=== PATIENT | male | born 1950 | race Caucasian/White ===

== ENCOUNTER → 2019-12-22 15:25 | Outpatient (CLI) | payer MEDICARE, OTHER, SELFPAY ==
[2019-12-23 02:10] LABS: COVID19 Sendout Not Detected (Not Detect)
== END ==
PROVIDERS: PCP Family Medicine Sports Medicine; Visit Provider Registered Nurse
DX: Z01.812 Encounter for preprocedural laboratory examination (principal)
CPT/HCPCS: 87635

== ENCOUNTER 2019-12-26 06:53 | Inpatient (IN) | payer MEDICARE, OTHER, SELFPAY ==
[2019-12-22 10:28] VITALS: BMI 32.1
[2019-12-26] VITALS (18 sets, daily range): BP systolic 106–136; BP diastolic 58–74; PULSE 60–68; RESP 10–18; TEMP 36.1–37.4; O2SAT 92–100; BMI 31.4
--- NOTE | 2019-12-26 | PATH_ITS ---
[facility] Accession Number: [id number] . 01 Material submitted: . PART A: lymph node - RIGHT PELVIC NODES PART B: lymph node - LEFT ILIAC NODE PART C: lymph node - LEFT PELVIC NODES PART D: prostate - PROSTATE . 02 Diagnosis: A. Right Pelvic Lymph Nodes, Excision: One lymph node negative for carcinoma. . B. Left Iliac Lymph Node, Excision: One lymph node negative for carcinoma. . C. Left Pelvic Lymph Nodes, Excision: One lymph node negative for carcinoma. . D. Prostate, Radial Prostectomy: Acinar adenocarcinoma; see Cancer Case Summary. . CANCER CASE SUMMARY - Prostate Gland Procedure: Radial prostatectomy. Prostate size Weight: 55 grams. Size: 4.7 x 4.5 x 4.0 cm. Histologic type: Acinar adenocarcinoma. Histologic grade: Grade group 2 (Elizabeth score 3+4=7). Percentage of pattern 4 in Purdin score 7 cancer: Approximately 20%. Tertiary pattern 5 (less than 5%) in overall Purdin score 7: Not applicable. Intraductal carcinoma: Not identified. Tumor quantitation Estimated percentage of prostate involved by tumor: 5%. Tumor size (dominant nodule): Greatest linear extent 18 mm (spanning blocks D12 and D14. Extraprostatic extension: Not identified. Urinary bladder neck invasion: Not identified. Seminal vesicle invasion: Not identified. Lymphovascular invasion: Not identified. Perineural invasion: Not identified. Margins: Uninvolved by invasive carcinoma. Treat effect: No known presurgical therapy. Regional lymph nodes Number of lymph nodes involved: 0. Number of lymph nodes examined: 3. Pathologic stage classification (pTNM, AJCC 8th edition) Primary tumor: pT2. Regional lymph nodes: pN0. . [facility] 12/29/2019 1750 Local . 02 Electronically signed: . Goran Pettit MD, PhD, Pathologist NPI- [id number] . 01 Gross description: . (A) Received in formalin, labeled right pelvic nodes, is a lymph node (5.4 x 2.0 x 0.9 cm) with attached adipose tissue. Serially sectioned and entirely submitted in cassettes A1-A8. (B) Received in formalin, labeled left iliac node, is a lymph node (1.4 x 1.0 x 0.4 cm). Serially sectioned and entirely submitted in cassette B1. (C) Received in formalin, labeled left pelvic nodes, is an apparent cluster of lymph nodes with surrounding adipose tissue (4.5 x 2.5 x 0.9 cm). Serially sectioned and entirely submitted in cassettes C1-C5. (D) Received in formalin, labeled prostate, is a prostate gland (55 grams, 4.0 cm AP, 4.7 cm ML, 4.5 cm SI), with attached seminal vesicles (right - 3.2 x 2.0 x 0.7 cm; left - 3.0 x 1.5 x 0.5 cm), and vas deferentia (right: length-4.0 cm, diameter-0.3 cm; left: length-0.8 cm, diameter-0.4 cm). The parenchyma is villegas-white with focally dark brown soft areas and a nodular appearance. No definitive nodules, masses or lesions are identified. Ink code: purple-right anterior; orange-left anterior; green-right posterior; black-left posterior; yellow-resection margin. The prostate is serially sectioned superior to inferior into nine slices, not including the base and apex resection margins. Section code: (D1) right vas deferens, resection margin en face and shipping services sales representative serial sections; (D2) left vas deferens, resection margin en face and shipping services sales representative serial sections; (D3-D4, D5-D6) seminal vesicles and base junction, shipping services sales representative serial sections, bisected and submitted right to left and superior to inferior; (D7) base resection margin, perpendicularly sectioned, entirely submitted; (D8-D11) slice 2, further bisected, one slice, quartered, entirely submitted; (D12-D15) slice 4, quartered, entirely submitted; (D16-D19) slice 6, quartered, entirely submitted; (D20-D22) slice 8, trisected, entirely submitted; (D23) apex, perpendicularly sectioned, entirely submitted. ([id number]) /[facility] 12/27/2019 1455 Local . 02 Pathologist provided ICD-10: C61 . 02 CPT . 498576, [id number], [id number], [id number] Performed at: 01 [facility] [address] [id number] MD Gary Arguello MD Phone: [phone] Performed at: [facility] [address] [place], [place] [id number] MD Carina Potter MD Phone: [phone]
[2019-12-26] MEDS: LACTATED RINGERS 1,000 ML 42 ML IV ×2 (07:53→10:02)
--- NOTE | 2019-12-26 07:58 | PM.PREOP ---
Pre-operative Note Interval Note History & Physical reviewed/Exam performed by Physician: Yes Changes to H&P: No H&P completed within 30 days and has changed as indicated here:: There are no changes to the history and physical examination scanned on file.
[2019-12-26] MEDS: CEFAZOLIN 1 GM/50 ML FROZ.PIGGY IV (08:35)
[2019-12-26] MEDS: CEFAZOLIN 2 GM/100 ML FROZ.PIGGY IV (08:35)
--- NOTE | 2019-12-26 09:25 | SUR.OPER ---
Supine on padded OR bed, head on pillow, arms secured on padded arm boards at <90 degrees abduction, legs uncrossed, safety belt across lower legs, pillow under knees, gel pad to heels.
[2019-12-26] MEDS: BUPIVACAINE LIPOSOME 266 MG/20 ML VIAL INJ (09:55)
--- NOTE | 2019-12-26 11:09 | SUR.OPER ---
Ligasure bipolar unit used S/N:[id number]
--- NOTE | 2019-12-26 12:23 | PM.OP.1 ---
Operative Date/Time/Diagnoses Date of procedure: 12/26/19 Time of procedure: 12:24 Pre-op diagnosis: Adenocarcinoma of the prostate Post-op diagnosis: same Procedure & Clinicians Procedure: 1.Radical retropubic prostatectomy. Same procedure as scheduled: Yes Indications: 1. Adenocarcinoma of the prostate. Surgeon: Yara Loyola Cutting Machine Operator: Josefina Mary Click Yes if Unassisted: No Anesthesia Type: General, Spinal and Local Operative Notes Findings: 1. Tissue planes overall unremarkable and anatomic. 2. A 1 cm, what appeared to be a lymph node, was excised from the pelvic adipose tissue near the left common iliac vasculature. 3. The prostate was moderately enlarged with a moderate-sized intravesical median lobe. Closure Type: primary Specimen(s): other Applied: catheter (18 Brazilian silicone Omer catheter) and drain(s) (Fifteen Brazilian fenestrated pelvic drain) Estimated Blood Loss (mL): 500 Blood products transfused: none Tourniquet time (min): 0 Procedure in detail: The patient was administered a successful Duramorph spinal anesthetic. He was then positioned in supine is was administered general anesthesia. The abdomen genitalia and groin were then prepped and draped in sterile fashion a 22 Brazilian Omer catheter was inserted in the bladder and the balloon filled to 20 cc and placed to gravity drainage. A midline infraumbilical incision was then made above the pubic symphysis division of the subcutaneous fat and midline rectus fascia were undertaken using combination of cautery and blunt and sharp technique the pelvic retroperitoneum was then entered. The pelvic sidewalls and space of Retzius were then exposed using blunt technique. The left external iliac vein adventitia was then divided along its length and the obturator josefina packet was then dissected from its fossa great care was taken to identify and avoid injury to the arterial supply or the obturator nerve. The sample was labeled appropriately and submitted to pathology for routine gross and microscopic examination. The exact same steps and maneuvers were conducted on the left side. The dorsal venous complex was then identified isolated and ligated with a 0 Vicryl suture hemostasis was satisfactory. The endopelvic fascia was then divided on either side of the prostate. The urethra just beyond the prostate apex was then carefully isolated identified and was divided the previously placed Omer catheter was then repositioned Pretty a low superior and anterior reflection of the prostate. The the non VA is fascia was then carefully opened and a plane was developed between it and the anterior rectal wall. The lateral and posteriorly positioned vascular bundles were then carefully isolated of and divided using the LigaSure Impact device. Now with the prostate reflected anteriorly and superiorly the seminal vesicles and vasa were identified bilaterally each were meticulously dissected from their position with application of small hemo lock clips were necessary for hemostasis large hemoclip lock clips were placed across the vasa on the patient and specimen side before division. Next the prostate was from the bladder neck using blunt and cautery technique the prostate with attached seminal vesicles was then handed off and submitted to pathology for routine gross and microscopic examination. The bladder neck was then reconstructed by 1st the facing the mucosa to the outer edges using a Lembert technique. A tennis racquet narrowing of the bladder neck aperture was then performed using 0 Monocryl suture The Araseli sound was then positioned in the penile membranous urethra and the flanges engaged. 2 - 0 Monocryl suture were then placed from outside in on the membranous urethra at the 2 468 in 10:00 a.m. positions. The same suture were then brought through the neobladder neck at the corresponding locations from inside to out. The [place] sound was then removed and an 18 Brazilian silicone Omer catheter was then inserted under direct visualization its tip was then advanced into the bladder lumen through the neobladder neck the balloon was then inflated to 15 cc. The anastomotic sutures were then diet tied down individually to complete the vesicle urethral anastomosis. The bladder was irrigated and found to be free of blood and clot. The catheter was placed to gravity drainage. Next a 15 Brazilian round fenestrated drain was positioned in the space of Retzius and right and left pelvic gutters and brought out through a separate stab incision to the right of the midline incision. This was secured in place using a 2 0 silk suture. The midline fascia was then closed using a running 0 PDS. Exparel anesthetic was administered to the rectus fascia layer and skin. The subcutaneous layer was closed with running 2 0 Vicryl. The skin was reapproximated utilizing a subcuticular technique of 4 0 Monocryl. The drain site and incision were then dressed with the Telfa and overlying op site for bio occlusive closure. The patient was then awakened and transferred to a gurney. He was then transported to recovery in stable condition. Complications: none Post-operative Condition: stable Disposition: PACU Plan for aftercare: Admit to acute care
--- NOTE | 2019-12-26 12:57 | PM.HP.1 ---
History of Present Illness History of Present Illness Chief complaint: [id number] PROSTATECTOMY Patient History Medical History Eczema (Acute) Hemorrhoids (Acute) HLD (hyperlipidemia) (Acute) HTN (hypertension) (Acute) Impaired hearing (Acute) LAFB (left anterior fascicular block) (Acute) Left knee pain (Acute) Mobitz II (Acute) KWADWO on CPAP (Acute) Pacemaker (Acute 04/2013) Pre-diabetes (Acute) Prostate cancer (Acute 11/2019) RBBB (right bundle branch block) (Acute) Seasonal allergies (Acute) Tingling of both feet (Acute) Surgical History History of esophagogastroduodenoscopy (EGD) (Acute) Hx of bilateral cataract extraction (Acute) Hx of cardiac cath (Acute 10/2010) Hx of colonoscopy (Acute) Hx of coronary angioplasty (Acute 11/25/17) Hx of heart artery stent (Acute) Hx of hernia repair (Acute 1988) S/P CABG x 3 (Acute 11/27/17) Family & Social History Social History: household members spouse Prior Living Arrangements RV Safety & Behavioral: Feels Safe in Current Yes Environment Been Physically Hurt or No Threatened By a Person Suicidal Ideation Description None Suicide Plan Description No Plan Tobacco & Substance use: Smoking Status Never smoker alcohol intake current alcohol intake frequency holiday/special occasion Substance Use Type does not use Meds Home Medications and Allergies Home Medications Medication Instructions Recorded Confirmed Type aspirin 81 mg PO BID 12/22/19 12/26/19 History lisinopril 10 mg PO BID 12/22/19 12/26/19 History Allergies Allergy/AdvReac Type Severity Reaction Status Date / Time niacin AdvReac Severe Flushing Verified 12/26/19 07:49 Zshrhru-Rjh-Sbz Reductase AdvReac Severe My body Verified 12/26/19 07:49 Inhibitor feels like it gets runover by a steam roller Review of Systems Review of Systems ROS: Yes All systems reviewed with the patient and are negative except as otherwise documented Exam Vital Signs (past 8 hours): - 12/26/19 12:29 12/26/19 12:34 12/26/19 12:39 Temperature 97.9 F Pulse Rate 62 65 66 Respiratory Rate 17 12 15 Blood Pressure 123/66 106/61 124/69 Pulse Oximetry 92 97 98 Oxygen Delivery Method Nasal Cannula Oxygen Flow Rate 3 Const General: cooperative, comfortable, well developed and well groomed Nutritional Appearance: overweight Orientation: alert, awake and oriented x3 HENMT Head: normal to inspection, normocephalic and atraumatic Ears: external ear abnormal Nose: external nose normal Face and sinus: normal facial exam Neck Neck: normal visual inspection, full ROM and supple Resp Effort & Inspection: normal respiratory effort Auscultation: clear to auscultation bilaterally Cardio Rate: regular rate (Pacemaker) Rhythm: regular rhythm Assessment & Plan Assessment & Plan narrative: Assessment 1. High volume group 2 adenocarcinoma of the prostate Plan 1. Radical retropubic prostatectomy.
[2019-12-26] MEDS: OXYCODONE IR 5 MG TABLET PO (13:07)
--- NOTE | 2019-12-26 13:31 | SUR.PHASEI ---
1317 to room 225, bed down and locked, call light within reach, SCD's on, VSS, Pt sitting up, talking/oriented, states pain remains in the 3-4/1- range. Clothing bag to closet, glasses on bedside stand, CPAP in room. Stable and pleasant, appreciative of care.
--- NOTE | 2019-12-26 13:33 | PC.NURSE ---
Day shift: Pt on unit from PACU at approx 1320. He is A&Ox3 and in good spirits. Neg for Covid19 and is wearing his own mask. RA 97%. Denies chest pain or nausea. Omer patent w/ gillis red liquid in bag. Oriented to room and call light. Bed alarm is on and call light in reach. Pt agrees to not get OOB w/o help from staff.
[2019-12-26] MEDS: LACTATED RINGERS 1,000 ML 125 ML IV ×2 (14:04→22:03)
[2019-12-26] MEDS: ACETAMINOPHEN 325 MG TABLET 650 MG PO ×2 (14:07→20:44)
[2019-12-26 15:06] LABS: Add Manual Diff / Slide Review NO; Basophils Absolute Auto 0 /uL (0-100); Basophils Percent Auto 0.1 % (0-2); Eosinophils Absolute Auto 100 /uL (0-450); Eosinophils Percent Auto 0.7 % (2-4); Hematocrit 40.5 % (41-53); Hemoglobin 13.5 g/dL (13.5-17.5); Lymphocytes Absolute Auto 1800 /uL (1100-4500); Lymphocytes Percent Auto 10.7 % (25-40); Mean Corpuscular HGB Conc 33.5 % (30-36); Mean Corpuscular Hemoglobin 28.7 PG (26-34); Mean Corpuscular Volume 85.9 fL (80-100); Monocytes Absolute Auto 800 /uL (0-900); Neutrophils Absolute Auto 13700 /uL (1500-7000); Neutrophils Percent Auto 83.5 % (50-75); Platelet Count 179 X10^3/uL (150-400); Red Blood Cell Count 4.71 X10^6/uL (4.5-5.9); Red Cell Distribution Width 14.3 % (11.6-14.8); White Blood Cell Count 16.4 X10^3/uL (4.5-11.0)
--- NOTE | 2019-12-26 16:31 | PC.NURSE ---
Addendum entered by Rosalie Gill R.N. 12/26/19 22:49: Pt had uneventful evening. Ambulated in hallway w/staff. Denies discomfort. Dsg w/shadow drainage. Greg drain put out 325cc. dark gillis color fluid. Dr. Loyola notified and orders recieve to just have to gravity drainage. Will assess. Call light w/in reach, bed alarm on for pt safety. Continue w/plan of care. Original Note: Pt resting quietly at this time. Denies discomfort. H:L left hand intact/patent. IV right wrist infusing LR @ 100cc/hr via pump w/o incidence., Surgical dsg CDI Greg drain patent red drainage. Omer cath patent dark gillis colored urine. Call light w/in reach, bed alarm on fo pt safety.
[2019-12-26 20:24] LABS: Hematocrit 36.3 % (41-53); Hemoglobin 12.2 g/dL (13.5-17.5); Mean Corpuscular HGB Conc 33.5 % (30-36); Mean Corpuscular Hemoglobin 28.7 PG (26-34); Mean Corpuscular Volume 85.7 fL (80-100); Platelet Count 161 X10^3/uL (150-400); Red Blood Cell Count 4.23 X10^6/uL (4.5-5.9); Red Cell Distribution Width 14.4 % (11.6-14.8); White Blood Cell Count 11.8 X10^3/uL (4.5-11.0)
[2019-12-26] MEDS: ASPIRIN EC 81 MG TABLET PO (20:44)
[2019-12-26] MEDS: lisinopriL 10 MG TABLET PO (20:44)
[2019-12-27] VITALS (11 sets, daily range): BP systolic 113–134; BP diastolic 59–68; PULSE 64–73; RESP 18; TEMP 36.4–37.1; O2SAT 95–99
--- NOTE | 2019-12-27 01:10 | PC.NURSE ---
NOC Note: Pt reported feeling pressure in bladder, [place] cath and tubing with large blood clot noted. [place] was irrigated, clot removed and [place] is patent at this time.
[2019-12-27] MEDS: LACTATED RINGERS 1,000 ML 125 ML IV (06:07)
--- NOTE | 2019-12-27 07:37 | PM.PN.1 ---
Subjective Subjective Date Patient Seen: 12/27/19 Time Patient Seen: 07:37 Interval history: The patient provides no interval complaints. He denies pain. He tolerated a general diet for dinner. He is passing flatus. Catheter was irrigated for a few small clots during the night. Reggie Hudson drain was found to have a high output on suction. Order was provided to leave to bulb gravity suction with marked improvement in output. Exam Vital Signs (past 8 hours): - 12/27/19 00:25 12/27/19 04:27 12/27/19 05:12 Temperature 97.5 F L Pulse Rate 69 Respiratory Rate 18 Blood Pressure 134/67 Pulse Oximetry 99 98 97 Oxygen Delivery Method Room Air Oxygen Flow Rate 0 Narrative Exam Narrative: He is sitting comfortably in bed in no acute distress. Chest-equal clear nonlabored bilaterally. Heart-normal rate and rhythm. Abdomen incisional and drain dressings are intact. Bowel sounds are active no distention. Extremities no pallor edema or cyanosis. SCDs in place. Objective Labs Result Diagrams: 12/26/19 20:10 Labs: Laboratory Results - last 24 hr 12/26/19 12/26/19 14:15 20:10 WBC 16.4 H 11.8 H RBC 4.71 4.23 L Hgb 13.5 12.2 L Hct 40.5 L 36.3 L MCV 85.9 85.7 MCH 28.7 28.7 MCHC 33.5 33.5 RDW 14.3 14.4 Plt Count 179 161 Neut % (Auto) 83.5 H Lymph % (Auto) 10.7 L [place] % (Auto) 5.0 Eos % (Auto) 0.7 L Baso % (Auto) 0.1 Neut # (Auto) 72370 H Lymph # (Auto) 1800 [place] # (Auto) 800 Eos # (Auto) 100 Baso # (Auto) 0 Assessment & Plan Assessment & Plan narrative: Assessment: 1. Stable postoperative day 1. Status post radical prostatectomy. Plan: 1. Increase diet and activity. 2. Catheter care and use instruction. 3. Pathology pending.
--- NOTE | 2019-12-27 11:17 | CM.DANOTE ---
DCP: Case received, EMR reviewed and met with patient. Introduced self and role. Was able to meet with patient in his room to obtain information regarding his health history, living situation, as well as baseline activity level. DCP assessment completed with information currently available. Patient is a 69 year old male who admitted yesterday morning to the care of the urology team. Payer: confirmed: Medicare/[employer]. Patient came to the hospital for a surgical procedure. He had a radical retropubic prostatectomy. Patient has history of adenocarcinoma of the prostate. Met with patient in his room. Pleasant. He was sitting up in chair in his room. He used to live in [place], which he stated is still his mailing address, but currently resides on [address] with his , Izzy. He has an RV, and is living on family's property. He is independent, drives, and him and his travel. P: DCP to continue to follow. He should be able to go home when he is medically stable. Vannessa Gold RN/Income Tax Preparer.
[2019-12-27] MEDS: ASPIRIN EC 81 MG TABLET PO ×2 (11:27→21:23)
[2019-12-27] MEDS: DOCUSATE 100 MG CAPSULE PO (11:28)
[2019-12-27] MEDS: ENOXAPARIN 30 MG/0.3 ML SYRINGE SUBCUT (11:28)
--- NOTE | 2019-12-27 14:04 | PC.NURSE ---
Day Shift Note Patient reporting large amount of leaking around urinary catheter at the urethra, repositioned catheter and irrigated with 200 ml which was readily withdrawn. No clots aspirated at that time but catheter draining freely with sediment/pink output. Pt denies further large-scale leaking. Walked in silva SBA. Denies pain. Drain to right side draining to gravity. Call light within reach, using appropriately to make needs known.
--- NOTE | 2019-12-27 14:46 | PC.NURSE ---
Day shift: Pt under the care of this auto service writer at approx 1430. Transfered from ICU floor care. VS WNL. No c/o pain or discomfort. Rhea patent.
[2019-12-27] MEDS: ACETAMINOPHEN 325 MG TABLET 650 MG PO (15:07)
[2019-12-27] MEDS: lisinopriL 10 MG TABLET PO (21:23)
[2019-12-28 00:02] VITALS: BP 156/67; PULSE 61; RESP 16; TEMP 37.5; O2SAT 97
[2019-12-28 04:00] VITALS: BP 153/71; PULSE 63; RESP 16; TEMP 37.2; O2SAT 94
[2019-12-28] MEDS: ACETAMINOPHEN 325 MG TABLET 650 MG PO ×2 (04:18→10:37)
[2019-12-28 07:00] VITALS: BP 150/71; PULSE 62; RESP 18; TEMP 36.5; O2SAT 99
--- NOTE | 2019-12-28 07:23 | PM.DS.1 ---
History of Present Illness History of Present Illness Date Patient Seen: 12/28/19 Time Patient Seen: 07:23 Chief complaint: [id number] PROSTATECTOMY Narrative: The patient was admitted on the morning of 12/26/2019 and underwent uncomplicated radical retropubic prostatectomy and bilateral pelvic lymph node dissection under general Duramorph spinal anesthesia for diagnosis of presumed localized adenocarcinoma of the prostate. Discharge Providers Provider Date of admission: 12/26/19 06:53 Discharge Date: 12/28/19 Consults: 12/26/19 07:44 Consult to Respiratory Therapy Evaluate & Treat Comment: Physician Instructions: Evaluate and treat 12/26/19 12:44 Consult to Discharge Planning Routine Comment: 12/26/19 13:44 Consult to Discharge Planning Routine Comment: Discharge provider: Yara Loyola MD Summary Hospital Course Discharge Diagnosis: Adenocarcinoma of the prostate Hospital Course: Patient was admitted on the morning of 12/26/2019, and underwent uncomplicated radical retropubic prostatectomy and bilateral pelvic lymphadenectomy under general and Duramorph anesthesia. The postoperative course was largely unremarkable in that he tolerated a general diet immediately the evening postoperative and was able to ambulate about independently as well. He continued to progress overall without any clinical events or incidents. On the morning of 12/28/2019 stable for discharge. Status at Discharge Cognitive/behavioral status at discharge: oriented Functional status at discharge: independent ambulation Overall status at discharge: patient is back to baseline Time Spent with Patient Time spent: Less than 30 minutes Exam Vital Signs (past 8 hours): - 12/28/19 00:02 12/28/19 04:00 Temperature 99.5 F 98.9 F Pulse Rate 61 63 Respiratory Rate 16 16 Blood Pressure 156/67 H 153/71 H Pulse Oximetry 97 94 Oxygen Delivery Method Room Air,CPAP Oxygen Flow Rate 0 Objective Labs Result Diagrams: 12/26/19 20:10 Discharge Plan Discharge Plan Patient Disposition: Home Discharge comment: Scheduled postoperative visit in 6-8 weeks with PSA and PVR. Provide large and leg bag for home use with care and use instruction. Discharge orders & Medications Prescriptions: New oxycodone 5 mg Tablet 5 mg PO Q6HR PRN (Reason: Pain, Moderate (4-6)) Qty: 20 RF: 0 enoxaparin [Lovenox] 30 mg/0.3 mL Syringe 30 mg SUBCUT DAILY Qty: 30 RF: 0 ciprofloxacin HCl [Cipro] 250 mg tablet 250 mg PO BID Qty: 6 RF: 0 Continued aspirin 81 mg Tablet,Delayed Release (Dr/Ec) 81 mg PO BID RF: 0 lisinopril 10 mg Tablet 10 mg PO BID RF: 0 Follow up/Referrals: Yara Loyola MD [Physician] - Diet/Activity/Treatments Diet: Diet as Tolerated Activity: No lifting heavier than 15 lb for 4 weeks. No driving x2 weeks. Catheter: 2-way Omer Catheter comment: Provide large and leg bag with home care instruction. Skin/Wound/Dressing Care Report to your healthcare provider any signs of infection, such as:: chills, fever, increased pain, unusual drainage and unusual redness Dressin. Removal abdominal dressing and leave open to air. 2. Remove Reggie-Hudson drain. Visit Report/Discharge Packet Instructions: DI for Prescription Opioid Use, DI for Radical Prostatectomy
[2019-12-28 08:24] VITALS: BP 131/62; PULSE 76
[2019-12-28] MEDS: lisinopriL 10 MG TABLET PO (08:27)
[2019-12-28] MEDS: ASPIRIN EC 81 MG TABLET PO (08:27)
[2019-12-28] MEDS: ENOXAPARIN 30 MG/0.3 ML SYRINGE SUBCUT (08:27)
--- NOTE | 2019-12-28 08:38 | PC.NURSE ---
Day Shift- Lovenox injection teaching complete. Pt administered SQ injection to his RLQ abd with this RN instruction and observation. Pt tolerated well and stated he will be doing the self injections daily at home himself. Lovenox injections added to his discharge paperwork teaching information.
[2019-12-28 12:00] VITALS: BP 139/71; PULSE 67; RESP 18; TEMP 36.3; O2SAT 98
--- NOTE | 2019-12-28 12:16 | PC.NURSE ---
ROSA drain discontinued as ordered, patient tolerated well. Gauze with tegaderm placed to site. Abdominal incision open to air, well approximated without drainage or redness noted. Patient's indwelling catheter switched to leg beg per order and patient preference, tolerated well, catheter care reviewed again with patient and he states understanding and has no further questions or concerns at this time.
--- NOTE | 2019-12-28 12:22 | PC.NURSE ---
Day Shift- Called Dr. Loyola at 1220, unable to locate prescriptions for Ciprofloxacin and Lovenox. Pt does not already have at home, not currently at [facility] in [place], [place] (pt's preferred pharmacy). Dr. Loyola to call in 2 above prescriptions to [facility] in [place] for pt. Primary RN Dawood nagel.
== END 2019-12-28 12:50 | disposition home or self-care (01) | DRG 708 ==
PROVIDERS: Admitting Provider Specialist; Referring Provider Specialist; Visit Provider Specialist
PROC: 0VT00ZZ Resection of Prostate, Open Approach (ICD-10-PCS; principal; 2019-12-26 07:45)
DX: C61 Malignant neoplasm of prostate (principal); I44.1 Atrioventricular block, second degree; I44.4 Left anterior fascicular block; Z95.0 Presence of cardiac pacemaker; I25.10 Atherosclerotic heart disease of native coronary artery without angina pectoris; G47.33 Obstructive sleep apnea (adult) (pediatric); I10 Essential (primary) hypertension; Z95.1 Presence of aortocoronary bypass graft
CPT/HCPCS: 36415; 82962; 85025; 85027; 87086; 94762; C9290; J0330; J0690; J1650; J2250; J2274; J2405; J2704; J3010